=== PATIENT | male | born 1950 | race Caucasian/White ===

== ENCOUNTER 2018-11-07 02:36 | Inpatient (IN) | payer MEDICARE | END 2018-11-10 11:30 | disposition home or self-care (01) | LOC: ER 02:36 → OVERFLOW 08:52 → CENTRAL 15:56 | DX: N13.2 Hydronephrosis with renal and ureteral calculous obstruction (principal); K42.9 Umbilical hernia without obstruction or gangrene; K57.30 Diverticulosis of large intestine without perforation or abscess without bleeding; E87.8 Other disorders of electrolyte and fluid balance, not elsewhere classified; N39.0 Urinary tract infection, site not specified ==